=== PATIENT | female | born 1950 | race Caucasian/White ===

== ENCOUNTER 2017-05-18 09:24 | Inpatient (IN) | payer OTHER ==
[~2017-05-18] VITALS: Ht 154.9 cm; Wt 54.4 kg
[~2017-05-18 09:24] MED LIST: ASPIR 8181 MG PO; ASPIRIN81 M2 PO; CALCIUM 500 +1 EAC4 PO; CALCIUM 600 +1 EAC1 PO; CELEXA 20 MG TA20 M1 PO; CELEXA20 MG PO; COLACE100 MG PO; CRESTOR10 MG PO; EFFEXOR XR75 MG PO; EVISTA60 MG PO; FISHOIL OR; HYDROCODON-ACE1 EAC8 PO; HYDROCODONE-APA1 TA1 PO; IBUPROFEN 200200 M1 PO; MACULAR SHIELD PO; MULTIPLE VITAM1 EAC3 PO; MULTIVITAMINS PO; NAPROSYN500 MG PO; NORCO 10-325 T1 EACH PO; PRILOSEC 20 MG20 MG PO; TYLENOL EXTRA500 MG PO; VITAMINC500 PO; XARELTO10 MG PO
[2017-05-18 09:25] VITALS: BP 128/97
[2017-05-18] MEDS ORDERED: NAPROSYN500 MG PO (09:31)
[2017-05-18 09:57] LABS: HEMATOCRIT 38.7 % (37.0-47.0); HEMOGLOBIN 13.3 gm/dL (12.0-15.0); MCH 31.6 pg (26.0-34.0); MCHC 34.4 g/dL (28.0-37.0); MCV 91.7 fL (80.0-100.0); PLATELET COUNT 232 thou/uL (150-400); RBC 4.23 mil/uL (4.20-5.00); RDW 13.7 % (10.5-14.5); WBC 12.5 thou/uL (4.0-11.0)
[2017-05-18 10:10] LABS: MANUAL DIFF YES
[2017-05-18 10:36] LABS: CALCIUM 9.6 mg/dL (8.5-10.1); CREATININE 0.8 mg/dL (0.6-1.0); POTASSIUM 3.9 mmol/L (3.5-5.1)
[2017-05-18 10:37] LABS: ABSOLUTE NEUTROPHILS 11.9 thou/uL (1.4-8.2); PLATELET ESTIMATE NORMAL; TOTAL CELL COUNT 100
[2017-05-18 10:41] LABS: ALBUMIN 3.8 g/dL (3.4-5.0); DIRECT BILIRUBIN 0.1 mg/dL (<0.1-0.3); TOTAL BILIRUBIN 0.4 mg/dL (<0.1-1.0); TOTAL PROTEIN 6.4 g/dL (6.4-8.2)
[2017-05-18] MEDS ORDERED: ASPIR 8181 M1 PO (12:06)
[2017-05-18 12:07] VITALS: BP 103/48
[2017-05-18 13:16] VITALS: BP 106/54
[2017-05-18 13:57] VITALS: BP 113/50
[2017-05-18 15:26] VITALS: BP 105/49
[2017-05-18 20:00] VITALS: BP 111/63
[2017-05-19 04:30] VITALS: BP 154/80
[2017-05-19 06:20] LABS: HEMATOCRIT 33.3 % (37.0-47.0); HEMOGLOBIN 11.4 gm/dL (12.0-15.0); MCH 31.3 pg (26.0-34.0); MCHC 34.4 g/dL (28.0-37.0); MCV 90.9 fL (80.0-100.0); RBC 3.66 mil/uL (4.20-5.00); RDW 13.5 % (10.5-14.5); WBC 12.3 thou/uL (4.0-11.0)
[2017-05-19 06:30] LABS: CALCIUM 8.8 mg/dL (8.5-10.1); CREATININE 0.6 mg/dL (0.6-1.0); POTASSIUM 3.6 mmol/L (3.5-5.1)
[2017-05-19 08:00] VITALS: BP 120/66
[2017-05-19 16:00] VITALS: BP 112/61
[2017-05-19 20:48] VITALS: BP 121/66
[2017-05-20 03:47] VITALS: BP 127/71
[2017-05-20 06:18] LABS: ABSOLUTE NEUTROPHILS 6.2 thou/uL (1.4-8.2); BASOPHILS 0.4 % (0.0-2.0); EOSINOPHILS 0.9 % (0.0-3.0); HEMATOCRIT 30.6 % (37.0-47.0); HEMOGLOBIN 10.7 gm/dL (12.0-15.0); MCH 31.6 pg (26.0-34.0); MCHC 34.9 g/dL (28.0-37.0); MCV 90.7 fL (80.0-100.0); MONOCYTES 10.5 % (1.0-8.0); PLATELET COUNT 211 thou/uL (150-400); POLYS 76.2 % (36.0-66.0); RBC 3.38 mil/uL (4.20-5.00); RDW 13.4 % (10.5-14.5); WBC 8.1 thou/uL (4.0-11.0)
[2017-05-20 06:26] LABS: MANUAL DIFF NO
[2017-05-20 06:33] LABS: CALCIUM 8.5 mg/dL (8.5-10.1); CREATININE 0.5 mg/dL (0.6-1.0); POTASSIUM 3.7 mmol/L (3.5-5.1)
[2017-05-20 08:00] VITALS: BP 131/80
[2017-05-20 16:00] VITALS: BP 147/92
[2017-05-20 21:11] VITALS: BP 126/80
[2017-05-21 03:33] VITALS: BP 120/65
[2017-05-21] MEDS ORDERED: KEFLEX500 M1 PO (08:53)
[2017-05-21] MEDS ORDERED: HYDROCODON-ACE1 EAC8 PO (08:56)
[2017-05-21 10:12] VITALS: BP 151/83
[2017-05-21 11:04] VITALS: BP 151/83
== END 2017-05-21 12:15 | disposition home or self-care (01) | DRG 872 ==
LOC: ER 09:24 → 4E 10:56 → EROBS 10:56 → 4E 13:33 → ENTRNSPT 05-21 11:38 → 4E 05-21 12:15
PROVIDERS: Family Medicine; Nurse Practitioner
DX: A41.9 Sepsis, unspecified organism (principal); N12 Tubulo-interstitial nephritis, not specified as acute or chronic; H35.30 Unspecified macular degeneration; F32.9 Major depressive disorder, single episode, unspecified; Z88.5 Allergy status to narcotic agent; Z79.899 Other long term (current) drug therapy; Z98.51 Tubal ligation status; Z87.01 Personal history of pneumonia (recurrent); Z98.41 Cataract extraction status, right eye; Z72.89 Other problems related to lifestyle
CPT/HCPCS: 10084